=== PATIENT | female | born 1990 | race Caucasian/White ===

== ENCOUNTER 2018-06-08 14:15 | Emergency (ER) | payer OTHER ==
[~2018-06-08] VITALS: Ht 160 cm; Wt 54.4 kg
[2018-06-08] MEDS ORDERED: LAMICTAL200 M1 (14:34)
== END 2018-06-08 21:03 | disposition home or self-care (01) ==
LOC: ER 14:15
DX: B34.9 Viral infection, unspecified (principal)

== ENCOUNTER 2022-08-22 11:10 | Inpatient (IN) | payer OTHER ==
[~2022-08-22] VITALS: Ht 160 cm; Wt 64.4 kg
[~2022-08-22 11:10] MED LIST: LAMICTAL200 M1
[2022-08-29] MEDS ORDERED: PRENATAL + DHA1 EAC1 PO (04:52)
[2022-08-29] MEDS ORDERED: DIALYVITE 800-1 EACH PO (04:53)
[2022-08-29] MEDS ORDERED: ZOLOFT25 MG PO (04:53)
== END 2022-08-31 13:40 | disposition home or self-care (01) | DRG 768 ==
LOC: LDR 08-29 04:10 → OB/GYN 08-29 22:39 → SURH 09-01 13:00
PROVIDERS: ADMIT Obstetrics & Gynecology Gynecology; ATTEND Obstetrics & Gynecology Gynecology
PROC: 10E0XZZ Delivery of Products of Conception, External Approach (ICD-10-PCS; principal; 2022-08-29)
PROC: 0DQR0ZZ Repair Anal Sphincter, Open Approach (ICD-10-PCS; 2022-08-29)
PROC: 0W8NXZZ Division of Female Perineum, External Approach (ICD-10-PCS; 2022-08-29)
PROC: 0UQG7ZZ Repair Vagina, Via Natural or Artificial Opening (ICD-10-PCS; 2022-08-29)
PROC: 4A1HXCZ Monitoring of Products of Conception, Cardiac Rate, External Approach (ICD-10-PCS; 2022-08-29)
DX: O70.21 Third degree perineal laceration during delivery, IIIa (principal); Z37.0 Single live birth; Z3A.39 39 weeks gestation of pregnancy; Z20.822 Contact with and (suspected) exposure to COVID-19

== ENCOUNTER 2022-08-22 11:28 | Outpatient (CLI) | payer OTHER | END 2022-08-22 12:13 | disposition home or self-care (01) | LOC: NST 11:28 | PROVIDERS: ATTEND Obstetrics & Gynecology Maternal & Fetal Medicine | DX: Z34.83 Encounter for supervision of other normal pregnancy, third trimester (principal) ==

== ENCOUNTER 2022-09-29 11:18 | Emergency (ER) | payer OTHER ==
[~2022-09-29] VITALS: Ht 160 cm; Wt 54.4 kg
[~2022-09-29 11:18] MED LIST changes: +DIALYVITE 800-1 EACH PO; +PRENATAL + DHA1 EAC1 PO; +ZOLOFT25 MG PO
== END 2022-09-29 12:44 | disposition home or self-care (01) ==
LOC: ER 11:18
DX: N61.1 Abscess of the breast and nipple (principal); Z88.6 Allergy status to analgesic agent

== ENCOUNTER 2022-10-11 14:09 | Outpatient (CLI) | payer OTHER | END 2022-10-11 14:13 | disposition home or self-care (01) | LOC: LAB 14:09 | PROVIDERS: ATTEND Surgery | DX: N61.1 Abscess of the breast and nipple (principal) ==

== ENCOUNTER 2022-11-08 11:49 | Outpatient (CLI) | payer OTHER | END 2022-11-08 12:05 | disposition home or self-care (01) | LOC: SONOGRAMA 11:49 | PROVIDERS: ATTEND Surgery | DX: N61.1 Abscess of the breast and nipple (principal); N60.11 Diffuse cystic mastopathy of right breast; N60.12 Diffuse cystic mastopathy of left breast ==

== ENCOUNTER 2024-11-19 05:04 | Inpatient (IN) | payer OTHER ==
[~2024-11-19] VITALS: Ht 160 cm; Wt 3.2 kg
[2024-11-19 04:46] VITALS: BP 118/74
[2024-11-19] MEDS ORDERED: CHLORHEXIDINE GLUCONATE 120 ML BOTTLE TOP ONE (05:13)
[2024-11-19] MEDS ORDERED: LIDOCAINE HCL 1% 10ML VIAL ONE (05:13)
[2024-11-19] MEDS ORDERED: ERYTHROMYCIN BASE OPHT 1GM EACH TUBE OP ONE ×3 (05:13→11:45)
[2024-11-19] MEDS ORDERED: OXYTOCIN 20 UNITS/1000ML RL PIGGYBAG IV ONE (05:13)
[2024-11-19] MEDS ORDERED: FOLIC ACID0.8 M1 PO (05:15)
[2024-11-19] MEDS ORDERED: RINGERS SOLUTION,LACTATED 1,000 ML IV SCH (05:30)
[2024-11-19 05:36] VITALS: BP 118/74
[2024-11-19 06:16] LABS: BASO % 0.1 % (0.1-1.2); EOS # 0.04 (0.04-0.54); EOS % 0.5 % (0.7-7.0); HEMATOCRIT 32.1 % (34.1-44.9); HEMOGLOBIN 10.3 g/dL (11.2-15.7); LYMPH # 1.73 (1.18-3.74); LYMPH % 22.8 % (19.3-53.1); MEAN CORPUSCULAR HEMOGLOBIN 25.1 pg (25.6-32.2); MONO # 0.69 (0.24-0.82); MONO % 9.1 % (4.7-12.5); NEUT # 5.06 (1.56-6.13); NEUT % 66.8 % (34.0-71.1); PLATELET COUNT 269 K/uL (163-369); RED CELL DISTRIBUTION WIDTH 14.7 % (11.6-14.4)
[2024-11-19 06:26] LABS: INR < 0.93; PARTIAL THROMBOPLASTIN TIME 24.5 SECONDS (22.0-34.0)
[2024-11-19 06:45] LABS: ALBUMIN 2.7 gm/dL (3.4-5.0); BILIRUBIN TOTAL 0.25 mg/dL (0.3-1.2); CALCIUM 8.6 mg/dL (8.5-10.1); CREATININE SERUM 0.5 mg/dL (0.55-1.02); GFR 142.09; GLOBULINA 3.4 G/DL (2.4-3.5); POTASSIUM 4.6 mEq/L (3.5-5.1); TOTAL PROTEIN 6.1 gm/dL (6.4-8.2)
[2024-11-19 07:22] VITALS: BP 123/74
[2024-11-19] MEDS ORDERED: OXYTOCIN 20 UNITS/500ML RL PIGGYBAG IV ONE (08:08)
[2024-11-19] MEDS ORDERED: OXYTOCIN 20 UNITS/500ML RL PIGGYBAG IV SCH (08:45)
[2024-11-19] MEDS ORDERED: CEFAZOLIN SODIUM 1,000 MG VIAL IV SCH (09:45)
[2024-11-19] MEDS ORDERED: CITRIC ACID/SODIUM CITRATE 30 ML BLIST.PACK PO SCH (09:45)
[2024-11-19] MEDS ORDERED: OXYTOCIN 10 UNITS/ML VIAL ONE ×2 (09:59→16:57)
[2024-11-19] MEDS ORDERED: OXYTOCIN 1,000 ML IV ONE (11:00)
[2024-11-19] MEDS ORDERED: OXYTOCIN 10 UNITS/ML VIAL IV ONE (11:45)
[2024-11-19] MEDS ORDERED: MORPHINE SULFATE 4 MG/ML CARTRIDGE IV SCH (12:00)
[2024-11-19] MEDS ORDERED: MORPHINE SULFATE 4 MG/ML VIAL IV ONE ×2 (14:10→16:00)
[2024-11-19 17:40] VITALS: BP 120/76; O2SAT 96
[2024-11-19 18:26] VITALS: BP 120/76; O2SAT 96
[2024-11-20 00:08] VITALS: BP 107/71; O2SAT 98
[2024-11-20] MEDS ORDERED: ACETAMINOPHEN 500 MG GEL..CAP PO SCH (06:00)
[2024-11-20 07:36] LABS: BASO % 0.1 % (0.1-1.2); EOS # 0.02 (0.04-0.54); EOS % 0.2 % (0.7-7.0); HEMATOCRIT 28.8 % (34.1-44.9); HEMOGLOBIN 9.2 g/dL (11.2-15.7); LYMPH # 1.39 (1.18-3.74); LYMPH % 14.6 % (19.3-53.1); MEAN CORPUSCULAR HEMOGLOBIN 24.9 pg (25.6-32.2); MONO # 0.69 (0.24-0.82); MONO % 7.3 % (4.7-12.5); NEUT # 7.36 (1.56-6.13); NEUT % 77.5 % (34.0-71.1); PLATELET COUNT 260 K/uL (163-369); RED CELL DISTRIBUTION WIDTH 14.9 % (11.6-14.4)
[2024-11-20] MEDS ORDERED: PNV,CALCIUM 72/IRON/FOLIC ACID 1 TAB TABLET PO SCH (09:00)
[2024-11-20] MEDS ORDERED: GABAPENTIN 300 MG CAPSULE PO SCH (09:00)
[2024-11-20] MEDS ORDERED: DOCUSATE SODIUM 100MG CAP PO SCH (09:00)
[2024-11-20] MEDS ORDERED: SIMETHICONE 125 MG CAPSULE PO SCH (09:00)
[2024-11-20 09:08] VITALS: BP 114/72; O2SAT 98
[2024-11-20] MEDS ORDERED: OxyCODONE HCL 5 MG TABLET (ROXICODONE) PO PRN (12:15)
[2024-11-20 16:00] VITALS: BP 108/62; O2SAT 98
[2024-11-20 23:48] VITALS: BP 103/64
[2024-11-21 04:35] VITALS: BP 112/75
[2024-11-21 08:00] VITALS: BP 112/70; O2SAT 97
== END 2024-11-21 13:37 | disposition home or self-care (01) | DRG 788 ==
LOC: LDR 05:04 → O/R 10:39 → OB/GYN 12:11
PROVIDERS: Obstetrics & Gynecology Gynecology; ADMIT Obstetrics & Gynecology Maternal & Fetal Medicine; ATTEND Obstetrics & Gynecology Maternal & Fetal Medicine
PROC: 4A1HXCZ Monitoring of Products of Conception, Cardiac Rate, External Approach (ICD-10-PCS; 2024-11-19)
PROC: 10D00Z1 Extraction of Products of Conception, Low, Open Approach (ICD-10-PCS; principal; 2024-11-19 10:00)
DX: O36.8130 Decreased fetal movements, third trimester, not applicable or unspecified (principal); O62.1 Secondary uterine inertia; Z3A.38 38 weeks gestation of pregnancy; Z37.0 Single live birth

== ENCOUNTER 2024-11-24 16:48 | Emergency (ER) | payer OTHER ==
[~2024-11-24] VITALS: Ht 177.8 cm; Wt 54.4 kg
[~2024-11-24 16:48] MED LIST changes: +FOLIC ACID0.8 M1 PO
[2024-11-24 17:35] VITALS: BP 126/79; O2SAT 99
[2024-11-24] MEDS ORDERED: SUMATRIPTAN SUCCINATE 6 MG/0.5 ML VIAL SUBCUTANEO ONE ×2 (17:57→18:00)
[2024-11-24] MEDS ORDERED: ONDANSETRON HCL 2 MG/ML VIAL ONE (17:57)
[2024-11-24] MEDS ORDERED: DIPHENHYDRAMINE HCL 50 MG/ML VIAL 1ML ONE (17:57)
[2024-11-24] MEDS ORDERED: ONDANSETRON HCL 2 MG/ML VIAL IV ONE (18:00)
[2024-11-24] MEDS ORDERED: DIPHENHYDRAMINE HCL 50 MG/ML VIAL 1ML IV ONE (18:00)
[2024-11-24 18:41] LABS: EOS # 0.02 (0.04-0.54); EOS % 0.2 % (0.7-7.0); HEMATOCRIT 32.8 % (34.1-44.9); HEMOGLOBIN 10.5 g/dL (11.2-15.7); LYMPH # 1.11 (1.18-3.74); LYMPH % 11.1 % (19.3-53.1); MEAN CORPUSCULAR HEMOGLOBIN 24.6 pg (25.6-32.2); MONO # 0.46 (0.24-0.82); MONO % 4.6 % (4.7-12.5); NEUT # 8.35 (1.56-6.13); NEUT % 83.7 % (34.0-71.1); PLATELET COUNT 393 K/uL (163-369); RED BLOOD COUNT 4.26 M/uL (3.93-5.22); RED CELL DISTRIBUTION WIDTH 15.6 % (11.6-14.4)
[2024-11-24 19:08] LABS: ALBUMIN 2.5 gm/dL (3.4-5.0); BILIRUBIN TOTAL 0.29 mg/dL (0.3-1.2); CALCIUM 8.6 mg/dL (8.5-10.1); CREATININE SERUM 0.39 mg/dL (0.55-1.02); GFR 189.27; GLOBULINA 4.1 G/DL (2.4-3.5); POTASSIUM 3.34 mEq/L (3.5-5.1); TOTAL PROTEIN 6.6 gm/dL (6.4-8.2)
[2024-11-24 19:39] LABS: URINE APPEARANCE Clear; URINE BILIRRUBIN Negative (NEGATIVE); URINE BLOOD Large; URINE COLOR Yellow; URINE GLUCOSE Negative (NEGATIVE); URINE LEUKOCYTE Small; URINE NITRATE Negative; URINE PROTEIN 30 (NEGATIVE)
[2024-11-24 19:40] LABS: URINE BACTERIA 993.7 uL (0.0-1933); URINE EPITHELIAL CELLS 30.7 uL (0.0-38.8)
[2024-11-24 19:57] LABS: URINE CAST 0.14 uL (0.0-1.40); URINE KETONE >=160 (NEGATIVE)
[2024-11-24] MEDS ORDERED: IMITREX50 MG PO (20:51)
[2024-11-24] MEDS ORDERED: ONDANSETRON ODT8 MG PO (21:11)
[2024-11-24] MEDS ORDERED: BUTALB/ACETAMINOPHEN/CAFFEINE 1 TAB TABLET PO ONE (21:34)
== END 2024-11-24 21:19 | disposition home or self-care (01) ==
LOC: ER 17:20
PROVIDERS: General Practice
DX: O90.89 Other complications of the puerperium, not elsewhere classified (principal); G43.909 Migraine, unspecified, not intractable, without status migrainosus; Z88.6 Allergy status to analgesic agent; Z91.040 Latex allergy status; Z91.048 Other nonmedicinal substance allergy status

== ENCOUNTER 2024-12-09 11:36 | Emergency (ER) | payer OTHER ==
[~2024-12-09] VITALS: Ht 160 cm; Wt 52.2 kg
[~2024-12-09 11:36] MED LIST changes: +IMITREX50 MG PO; +ONDANSETRON ODT8 MG PO
[2024-12-09] MEDS ORDERED: LACTULOSE 20 G/30 ML BLIST.PACK PO ONE (12:30)
[2024-12-09] MEDS ORDERED: MINERAL OIL 30 ML BLIST.PACK PO ONE (12:30)
[2024-12-09] MEDS ORDERED: MAGNESIUM HYDROXIDE 400 MG/5 ML ML PO ONE (12:30)
[2024-12-09 13:21] LABS: BASO % 0.2 % (0.1-1.2); EOS # 0.10 (0.04-0.54); EOS % 1.1 % (0.7-7.0); LYMPH # 1.97 (1.18-3.74); LYMPH % 21.7 % (19.3-53.1); MEAN PLATELET VOLUME 9.30 fl (9.4-12.4); MONO # 0.38 (0.24-0.82); MONO % 4.2 % (4.7-12.5); NEUT # 6.57 (1.56-6.13); NEUT % 72.6 % (34.0-71.1); RED CELL DISTRIBUTION WIDTH 17.2 % (11.6-14.4)
[2024-12-09 13:58] LABS: URINE APPEARANCE Clear; URINE BACTERIA 58.7 uL (0.0-1933); URINE BILIRRUBIN Negative (NEGATIVE); URINE BLOOD Moderate; URINE COLOR Dark Yellow; URINE EPITHELIAL CELLS 13.2 uL (0.0-38.8); URINE GLUCOSE Negative (NEGATIVE); URINE LEUKOCYTE Negative; URINE NITRATE Negative; URINE PROTEIN Negative (NEGATIVE); URINE RBC 18.0 uL (0.0-20.8); URINE UROBILINOGEN 1.0 E.U./dl; URINE WBC 11.9 uL (0.0-23.2)
[2024-12-09 14:05] LABS: URINE CAST 0.58 uL (0.0-1.40); URINE KETONE 80 (NEGATIVE)
== END 2024-12-09 15:50 | disposition home or self-care (01) ==
LOC: ER 11:56
PROVIDERS: Emergency Medicine
DX: K59.00 Constipation, unspecified (principal); Z88.6 Allergy status to analgesic agent; Z91.040 Latex allergy status